=== PATIENT | male | born 1950 ===

== ENCOUNTER → 2024-08-16 | Outpatient (CLI) | payer BC ==
[~2024-08-16] MED LIST: Depo-Testo100 MG/1 M IM; Multivitamin1 EAC1 PO; POTCHL10ER PO; Percocet 5-3251 EACH PO; T3; Zofran Odt4 MG SL
[2024-08-16 11:02] LABS: Source, Urine Clean Catch
[2024-08-16 12:36] LABS: Appearance, Urine Clear (Clear); Bilirubin, Urine Neg (Neg); Blood, Urine Neg (Neg); Color, Urine Yellow (P-Yellow); Glucose Qualitative, Urine Neg (Neg); Ketones, Urine Neg (Neg); Leukocyte Esterase, Urine Neg (Neg); Nitrite, Urine Neg (Neg); Protein, Urine Neg (Neg); Urobilinogen, Urine NORM (Normal)
== END ==
LOC: LAB 10:15 → LAB SHORT 10:15
PROVIDERS: Physician Assistant Medical
DX: R35.0 Frequency of micturition (principal); R31.29 Other microscopic hematuria
CPT/HCPCS: 81003; 87086